=== PATIENT | female | born 1995 | race Caucasian/White ===

== ENCOUNTER 2019-04-12 08:42 | Emergency (ER) | payer OTHER, SELFPAY ==
[2019-04-12 08:52] VITALS: BP 112/67; PULSE 72; RESP 16; TEMP 36.8; O2SAT 99
--- NOTE | 2019-04-12 09:16 | ED.GENADULT ---
HPI - General Adult General Chief complaint: Upper Respiratory Infection Stated complaint: Congestion Time Seen by Provider: 04/12/19 09:16 Source: patient Mode of arrival: ambulatory Limitations: no limitations History of Present Illness HPI narrative: 23-year-old female patient presents to the [facility] with complaints of sinus congestion for the past week. Denies any fevers. Patient states she has had a little bit of fullness to bilateral ears, stuffy nose, congestion. Denies any sore throat or coughing. Denies any chest pain, shortness of breath, abdominal pain, nausea, vomiting or diarrhea. Patient states she is only taken Advil for her symptoms. Denies getting a flu shot. Related Data Home Medications Medication Instructions Recorded Confirmed hydrocortisone 10 mg HS 02/06/19 04/12/19 hydrocortisone 15 mg DAILY 02/06/19 04/12/19 levothyroxine 25 mcg DAILY 02/06/19 04/12/19 propranolol 40 mg BID 02/06/19 04/12/19 Allergies Allergy/AdvReac Type Severity Reaction Status Date / Time No Known Allergies Allergy Verified 04/12/19 09:01 Review of Systems Review of Systems: Narrative: CONSTITUTIONAL: Denies fever, chills, or sweats. EYES: Denies visual changes, redness, or discharge. ENT: Denies rhinorrhea, positive congestion, denies sore throat, positive bilateral ear fullness CARDIOVASCULAR: Denies chest pain, palpitations, or edema. RESPIRATORY: Denies cough or dyspnea. GASTROINTESTINAL: Denies abdominal pain, nausea, vomiting, or diarrhea. GENITOURINARY: Denies dysuria or hematuria. SKIN: Denies rash or itching. MUSCULOSKELETAL: Denies back pain, joint pain, or myalgia. NEUROLOGIC: Denies headache, numbness, or weakness. PSYCHIATRIC: Denies anxiety or depression. 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 There is no relevant family history pertinent to the presenting complaint. Exam Narrative: Exam Narrative: GENERAL: Well-appearing, well-nourished, and in no acute distress. HEAD: Normocephalic, atraumatic. Slight tenderness noted to maxillary sinuses on palpation EYES: PERRLA and EOMI. ENT: Nares with erythema and edema noted to the left nare that is swollen shut, no rhinorrhea or epistaxis. Mucous membranes moist. Posterior pharynx with no erythema, tonsillectomy, exudates or lesions present. Bilateral TMs do appear slightly cloudy but there is no erythema or foreign bodies in the canal. NECK: Supple. No lymphadenopathy CHEST: Clear to auscultation. No respiratory distress. HEART: Regular rate and rhythm. No murmur heard. Normal peripheral pulses. ABDOMEN: Soft, nontender, nondistended, normal active bowel sounds. EXTREMITIES: Normal range of motion. No edema. SKIN: Warm, dry, no rash. NEURO: No focal deficits. Alert and oriented x3. Course Vital Signs Vital signs: Vital Signs Temperature 36.8 C 04/12/19 08:52 Pulse Rate 72 04/12/19 08:52 Respiratory Rate 16 04/12/19 08:52 Blood Pressure 112/67 04/12/19 08:52 Pulse Oximetry 99 04/12/19 08:52 Temperature 36.8 C 04/12/19 08:52 Pulse Rate 72 04/12/19 08:52 Respiratory Rate 16 04/12/19 08:52 Blood Pressure 112/67 04/12/19 08:52 Pulse Oximetry 99 04/12/19 08:52 Vital signs reviewed. Medical Decision Making Differential Diagnosis Differential Diagnosis: Differential diagnosis: Allergic rhinitis, chronic sinusitis, tonsillitis, acut
== END 2019-04-12 09:27 | disposition home or self-care (01) ==
PROVIDERS: Emergency Provider Nurse Practitioner Family; PCP Physician Assistant
DX: J00 Acute nasopharyngitis [common cold] (principal); J01.90 Acute sinusitis, unspecified; I10 Essential (primary) hypertension; E03.9 Hypothyroidism, unspecified; R73.03 Prediabetes
CPT/HCPCS: 99211; G0463